=== PATIENT | female | born 1965 | race Caucasian/White ===

== ENCOUNTER 2018-06-21 08:59 | Emergency (ER) | payer BC, OTHER ==
[~2018-06-21] VITALS: Ht 160 cm; Wt 117.5 kg
[~2018-06-21 08:59] MED LIST: BISO5TAB3 PO; CETI10TA84 PO; DIPH25CA5 PO; GLC/500 PO; HYG/25 PO; MONT1TAB3 PO; NALT1TAB14 PO; PRLSR20 PO; ROSU20TA PO; TELM80TA PO
[2018-06-21 09:01] VITALS: TEMP 36.4; Ht 160 cm; Wt 117.5 kg
--- NOTE | 2018-06-21 09:22 | EMERGENCY ROOM VISIT NOTE ---
History Report prepared by Vida: Stuart Segundo Under the Supervision of: Dr. Macy Everett D.O. First contact with patient: 09:07 Chief Complaint: FLANK PAIN Stated Complaint: KIDNEY LT FLANK PAIN, URGENCY History of Present Illness The patient is a 52 year old female who presents to the Emergency Room with complaints of intermittent left sided flank pain and urinary symptoms that onset 2 days ago. The patient states that she started to notice some increased urinary frequency and urgency two days ago. She also notes that when she urinates it feels like she is not completely voiding her bladder. She states that when she is done urinating if feels like she "is not completely relieved." She denies any obvious blood noted in the urine or any unusual odors. The patient describes the pain in the flank as an intermittent "sharp" sensation, or an intermittent "spasm and squeeze." The patient denies any history of kidney stones, but notes that she has had three UTIs this year, which are the first of her life. Her pain has been improved with Ibuprofen. Her brother does get kidney stones. She describes any chest pain or shortness of breath. Patient denies any other recent illness, trauma or change in activity, or change in medications. Does not think her prior UTIs were sent for culture but her UTIs were previously treated with Keflex. Patient denies any other concerning symptoms. Source of History: patient Onset: 2 days ago Position: back (Left flank) Quality: sharp, other ("spasm" "Squeeze" ) Timing: intermittent Modifying Factors (Relieving): ibuprofen Associated Symptoms: + urinary symptoms Review of Systems See HPI for pertinent positives & negatives. A total of 10 systems reviewed and were otherwise negative. Past Medical & Surgical Hx of diabetes, HTN, HLD, UTIs. Family History Diabetes mellitus Kidney disease BROTHER Kidney stones BROTHER Social History Smoking Status: Never Smoker Drug Use: none Marital Status: Housing Status: lives with significant other Occupation Status: employed Current/Historical Medications Scheduled Bisoprolol Fumarate (Zebeta), 5 MG PO QAM Cephalexin (Keflex), 1 CAP PO BID Cetirizine (Zyrtec), 10 MG PO QAM Chlorthalidone (Hygroton), 25 MG PO QAM Diphenhydramine Hcl (Benadryl), 50 MG PO HS Metformin Hcl (Glucophage), 500 MG PO BID Montelukast Sodium (Singulair), 10 MG PO QAM Naltrexone HCl-Bupropion HCl (Contrave 8-90 mg), 1 TAB PO TID Omeprazole (Prilosec), 20 MG PO QAM Rosuvastatin Calcium (Crestor), 20 MG PO QAM Telmisartan (Micardis), 80 MG PO QAM Scheduled PRN Phenazopyridine HCl (Pyridium), 200 MG PO TID PRN for Frequency/Burning w/ Urination Allergies Coded Allergies: Lisinopril (Verified Adverse Reaction, Mild, cough, 06/21/18) Physical Exam Vital Signs Date Time Temp Pulse Resp B/P (MAP) Pulse Ox O2 Delivery O2 Flow Rate FiO2 06/21/18 10:57 70 18 123/72 92 Room Air 06/21/18 10:33 66 18 107/74 92 Room Air 06/21/18 09:01 36.4 71 18 148/83 97 Room Air Physical Exam GENERAL: alert, well appearing, well nourished, no distress, non-toxic, obese EYE EXAM: normal conjunctiva, PERRL and EOM's grossly intact OROPHARYNX: no exudate, no erythema, lips, buccal mucosa, and tongue normal and mucous membranes are moist NECK: supple, no nuchal rigidity, no adenopathy, non-tender LUNGS: Clear to auscultation. Normal chest wall mechanics, no w/r/r HEART: no murmurs, S1 normal and S2 normal ABDOMEN: abdomen soft, non-tender, normo-active bowel sounds, no masses, no rebound or guarding. BACK: Back is symmetrical on inspection and there is no deformity, no midline tenderness, no CVA tenderness. SKIN: no rashes and no bruising UPPER EXTREMITIES: upper extremities are grossly normal. Full range of motion, normal pulses. LOWER EXTREMITIES: No pitting edema. Full range of motion, normal pulses. NEURO EXAM: Normal sensorium, cranial nerves II-XII grossly intact, normal speech, no gross weakness of arms, no gross weakness of legs. Normal gait, no ataxia, no facial droop. Medical Decision & Procedures ER Provider Diagnostic Interpretation: Radiology results have been interpreted by the radiologist and reviewed by me. CT SCAN OF THE ABDOMEN AND PELVIS WITHOUT CONTRAST CLINICAL HISTORY: left flank pain COMPARISON STUDY: No previous studies for comparison. TECHNIQUE: CT scan of the abdomen and pelvis was performed from the lung bases to the proximal femurs. Images are reviewed in the axial, sagittal, and coronal planes. IV contrast was not administered for this examination. A dose lowering technique was utilized adhering to the principles of ALARA. CT DOSE: 1993.88 mGy.cm FINDINGS: Lower chest: The heart is normal in size and configuration, without pericardial effusion. The lung bases and pleural spaces are clear. Liver: There is hepatic steatosis. No focal hepatic masses are visualized. Gallbladder: Unremarkable. Spleen: Normal in size and attenuation. Pancreas: Unremarkable. Adrenal glands: Unremarkable. Kidneys: There is an 8mm right renal cyst. No renal calculi are visualized. There is no hydronephrosis. No ureteral or bladder calculi are visualized. Bowel: There are no transition zones indicate bowel obstruction. The appendix appears normal. There is no evidence of acute diverticulitis. Peritoneum: There is no intraperitoneal free air or abdominal ascites. Vasculature: The abdominal aorta is normal in course and caliber. Adenopathy: None. Pelvic viscera: An IUD is visualized within the uterus. Uterine fundus appears somewhat bulbous and a fibroid cannot be excluded. Skeletal structures: No destructive osseous lesions are seen. IMPRESSION: 1. No renal, ureteral, or bladder calculi identified 2. No evidence of bowel obstruction. No evidence of free air 3. Normal appendix 4. No evidence of acute diverticulitis 5. Hepatic steatosis 6. Possible uterine fibroid. IUD within the uterus. Electronically signed by: Jared Arreola M.D. 06/21/2018 10:11 AM Dictated Date/Time: 06/21/2018 10:06 AM Laboratory Results 06/21/18 09:30 Red Blood Count 4.78, Mean Corpuscular Volume 90.0, Mean Corpuscular Hemoglobin 29.5, Mean Corpuscular Hemoglobin Concent 32.8, Mean Platelet Volume 10.1, Neutrophils (%) (Auto) 70.0, Lymphocytes (%) (Auto) 23.2, Monocytes (%) (Auto) 4.6, Eosinophils (%) (Auto) 1.6, Basophils (%) (Auto) 0.3, Neutrophils # (Auto) 8.08, Lymphocytes # (Auto) 2.68, Monocytes # (Auto) 0.53, Eosinophils # (Auto) 0.18, Basophils # (Auto) 0.03 06/21/18 09:30 Test 06/21/18 09:30 06/21/18 09:36 White Blood Count 11.53 K/uL (4.8-10.8) Red Blood Count 4.78 M/uL (4.2-5.4) Hemoglobin 14.1 g/dL (12.0-16.0) Hematocrit 43.0 % (37-47) Mean Corpuscular Volume 90.0 fL (80-100) Mean Corpuscular Hemoglobin 29.5 pg (25-34) Mean Corpuscular Hemoglobin Concent 32.8 g/dl (32-36) Platelet Count 321 K/uL (130-400) Mean Platelet Volume 10.1 fL (7.4-10.4) Neutrophils (%) (Auto) 70.0 % Lymphocytes (%) (Auto) 23.2 % Monocytes (%) (Auto) 4.6 % Eosinophils (%) (Auto) 1.6 % Basophils (%) (Auto) 0.3 % Neutrophils # (Auto) 8.08 K/uL (1.4-6.5) Lymphocytes # (Auto) 2.68 K/uL (1.2-3.4) Monocytes # (Auto) 0.53 K/uL (0.11-0.59) Eosinophils # (Auto) 0.18 K/uL (0-0.5) Basophils # (Auto) 0.03 K/uL (0-0.2) RDW Standard Deviation 50.0 fL (36.4-46.3) RDW Coefficient of Variation 15.1 % (11.5-14.5) Immature Granulocyte % (Auto) 0.3 % Immature Granulocyte # (Auto) 0.03 K/uL (0.00-0.02) Anion Gap 10.0 mmol/L (3-11) Est Creatinine Clear Calc Drug Dose 90.5 ml/min Estimated GFR () 86.3 Estimated GFR (Non- 74.5 BUN/Creatinine Ratio 21.2 (10-20) Calcium Level 9.8 mg/dl (8.5-10.1) Total Bilirubin 0.3 mg/dl (0.2-1) Aspartate Amino Transf (AST/SGOT) 50 U/L (15-37) Alanine Aminotransferase (ALT/SGPT) 95 U/L (12-78) Alkaline Phosphatase 115 U/L (45-117) Total Protein 9.1 gm/dl (6.4-8.2) Albumin 4.2 gm/dl (3.4-5.0) Globulin 4.9 gm/dl (2.5-4.0) Albumin/Globulin Ratio 0.9 (0.9-2) Urine Color YELLOW Urine Appearance CLOUDY (CLEAR) Urine pH 6.0 (4.5-7.5) Urine Specific [place] 1.011 (1.000-1.030) Urine Protein NEG (NEG) Urine Glucose (UA) NEG (NEG) Urine Ketones NEG (NEG) Urine Occult Blood NEG (NEG) Urine Nitrite NEG (NEG) Urine Bilirubin NEG (NEG) Urine Urobilinogen NEG (NEG) Urine Leukocyte Esterase SMALL (NEG) Urine WBC (Auto) 5-10 /hpf (0-5) Urine RBC (Auto) 0-4 /hpf (0-4) Urine Hyaline Casts (Auto) 5-10 /lpf (0-5) Urine Epithelial Cells (Auto) >30 /lpf (0-5) Urine Bacteria (Auto) 2+ (NEG) Laboratory results per my review. Medications Administered Medications (Trade) Dose Ordered Sig/Richardson Route Start Time Stop Time Status Last Admin Dose Admin Ceftriaxone Sodium (Rocephin Inj) 1 gm NOW STAT IV 06/21/18 10:14 06/21/18 10:15 DC 06/21/18 10:34 1 GM Phenazopyridine HCl (Phenazopyridine HCl 200MG Home Pack) 1 homepack UD ONCE PO 06/21/18 10:45 06/21/18 10:46 DC 06/21/18 10:45 1 HOMEPACK Cephalexin Monohydrate (Keflex 500MG Home Pack) 1 homepack NOW ONCE PO 06/21/18 10:45 06/21/18 10:46 DC 06/21/18 10:45 1 HOMEPACK ECG Per My Interpretation Indication: back/shoulder pain Rate (beats per minute): 60 Rhythm: sinus rhythm Findings: no acute ischemic change, no ectopy, other (Normal axis, normal interval) ED Course 0909: The patient was evaluated in room A10. A complete history and physical exam was performed. 1014: Ordered Rocephin 1 gm IV. 1045: Ordered Cephalexin 1 homepack PO, Phenazopyridine 1 homepack PO. 1102: Upon reevaluation, the patient is feeling better. I discussed the findings and the treatment plan with the patient. She verbalizes agreement and understanding. The patient was discharged home. Medical Decision Prior records/ancillary studies reviewed. Triage Nursing notes reviewed. Differential diagnosis: Etiologies such as renal colic, appendicitis, diverticulitis, mesenteric ischemia, aortic pathology, infections, inflammatory bowel disease, PUD, biliary pathology, UTI, as well as others were entertained. Patient with reassuring labs and imaging here, hemodynamically stable throughout , and no evolving or worsening symptoms. Patient agreeable with plan for treatment as evolving urinary tract infection possible ascending UTI. No evidence of pyelonephritis. No evidence of obstructive uropathy. I do not suspect bacteremia/sepsis. I do not suspect occult GI or vascular etiology for the patient's symptoms. Patient with no other complaints. I do not suspect an atypical presentation of pulmonary pathology or cardiac pathology. Patient well -appearing here throughout, declined pain medication. Discussed symptoms to watch and return for, close follow-up with her family doctor, pending culture, use of antibiotic, she verbalized understanding was agreeable with plan. Mild elevation of transaminases noted, likely due to use of statins as well as other medication. I do not suspect additional hepatobiliary pathology at this time. Medication Reconcilliation Current Medication List: was personally reviewed by me Blood Pressure Screening Patient's blood pressure: Normal blood pressure Impression Primary Impression: Left flank pain Additional Impression: Urinary tract infection Scribe Attestation The scribe's documentation has been prepared under my direction and personally reviewed by me in its entirety. I confirm that the note above accurately reflects all work, treatment, procedures, and medical decision making performed by me. Departure Information Dispostion Home / Self-Care Prescriptions Phenazopyridine HCl (Pyridium) 200 Mg Tab 200 MG PO TID Y for Frequency/Burning w/Urination, #10 TAB Prov: Macy Everett, DO 06/21/18 Cephalexin (KEFLEX) 500 Mg Cap 1 CAP PO BID for 7 Days, #14 CAP Prov: Macy Everett, DO 06/21/18 Referrals Jg Dillon M.D. (PCP) Forms HOME CARE DOCUMENTATION FORM, IMPORTANT VISIT INFORMATION Patient Instructions My [facility] Additional Instructions Please drink plenty of water and take the antibiotics as prescribed. The urine culture will take 2 days to result. If a change in her antibiotics need to be made to receive a phone call. Please call follow-up with your family doctor as a precaution. If you develop worsening pain, fevers or chills, nausea or vomiting, or unable to urinate, you have any other new concerns, please return the emergency room. Problem Qualifiers Additional Impression: Urinary tract infection Urinary tract infection type: acute cystitis Hematuria presence: without hematuria Qualified Codes: N30.00 - Acute cystitis without hematuria
[2018-06-21 09:48] LABS: BASO % 0.3 %; BASO ABS # 0.03 K/uL (0-0.2); EOS % 1.6 %; EOS ABS # 0.18 K/uL (0-0.5); HEMOGLOBIN 14.1 g/dL (12.0-16.0); IG# 0.03 K/uL (0.00-0.02); LYMPH % 23.2 %; LYMPH ABS # 2.68 K/uL (1.2-3.4); MEAN CORPUSCULAR HEMOGLOBIN 29.5 pg (25-34); MEAN CORPUSCULAR HGB CONC 32.8 g/dl (32-36); MEAN PLATELET VOLUME 10.1 fL (7.4-10.4); MONO % 4.6 %; MONO ABS # 0.53 K/uL (0.11-0.59); NEUT ABS # 8.08 K/uL (1.4-6.5); PLATELET COUNT 321 K/uL (130-400); RED CELL DISTRIBUTION WIDTH CV 15.1 % (11.5-14.5); WHITE BLOOD COUNT 11.53 K/uL (4.8-10.8)
--- NOTE | 2018-06-21 10:12 | DIAGNOSTIC IMAGING REPORT ---
CT SCAN OF THE ABDOMEN AND PELVIS WITHOUT CONTRAST CLINICAL HISTORY: left flank pain COMPARISON STUDY: No previous studies for comparison. TECHNIQUE: CT scan of the abdomen and pelvis was performed from the lung bases to the proximal femurs. Images are reviewed in the axial, sagittal, and coronal planes. IV contrast was not administered for this examination. A dose lowering technique was utilized adhering to the principles of ALARA. CT DOSE: 1993.88 mGy.cm FINDINGS: Lower chest: The heart is normal in size and configuration, without pericardial effusion. The lung bases and pleural spaces are clear. Liver: There is hepatic steatosis. No focal hepatic masses are visualized. Gallbladder: Unremarkable. Spleen: Normal in size and attenuation. Pancreas: Unremarkable. Adrenal glands: Unremarkable. Kidneys: There is an 8mm right renal cyst. No renal calculi are visualized. There is no hydronephrosis. No ureteral or bladder calculi are visualized. Bowel: There are no transition zones indicate bowel obstruction. The appendix appears normal. There is no evidence of acute diverticulitis. Peritoneum: There is no intraperitoneal free air or abdominal ascites. Vasculature: The abdominal aorta is normal in course and caliber. Adenopathy: None. Pelvic viscera: An IUD is visualized within the uterus. Uterine fundus appears somewhat bulbous and a fibroid cannot be excluded. Skeletal structures: No destructive osseous lesions are seen. IMPRESSION: 1. No renal, ureteral, or bladder calculi identified 2. No evidence of bowel obstruction. No evidence of free air 3. Normal appendix 4. No evidence of acute diverticulitis 5. Hepatic steatosis 6. Possible uterine fibroid. IUD within the uterus. Electronically signed by: Jared Arreola M.D. 06/21/2018 10:11 AM Dictated Date/Time: 06/21/2018 10:06 AM
[2018-06-21 10:14] LABS: ALBUMIN 4.2 gm/dl (3.4-5.0); CALCIUM 9.8 mg/dl (8.5-10.1); CREATININE 0.88 mg/dl (0.60-1.20); POTASSIUM 3.3 mmol/L (3.5-5.1); TOTAL PROTEIN 9.1 gm/dl (6.4-8.2)
[2018-06-21] MEDS ORDERED: CEFTRIAXONE SOD INJ 1 GM ADDVIAL IV STA (10:14)
[2018-06-21] MEDS ORDERED: CEPHALEXIN 500MG HOME PACK 1 EA BTL PO ONE (10:45)
[2018-06-21] MEDS ORDERED: PHENAZOPYRIDINE HOME PACK 200 MG VIAL PO ONE (10:45)
[2018-06-21 10:57] VITALS: BP 123/72; PULSE 70; O2SAT 92
[2018-06-21] MEDS ORDERED: PHEN-876 PO (11:31)
[2018-06-21] MEDS ORDERED: CEPH-571 PO (11:31)
== END 2018-06-21 11:25 | disposition home or self-care (01) ==
LOC: C.EDB 09:00 → C.EDA 11:25
DX: N39.0 Urinary tract infection, site not specified (principal); E11.9 Type 2 diabetes mellitus without complications; I10 Essential (primary) hypertension; E78.5 Hyperlipidemia, unspecified; Z83.3 Family history of diabetes mellitus; Z84.1 Family history of disorders of kidney and ureter; Z79.84 Long term (current) use of oral hypoglycemic drugs; Z79.899 Other long term (current) drug therapy; Z88.8 Allergy status to other drugs, medicaments and biological substances; E66.9 Obesity, unspecified